=== PATIENT | female | born 1990 | race Hispanic/Latino ===

== ENCOUNTER 2017-05-02 17:50 | Emergency (ER) | payer OTHER, MEDICAID ==
[2017-05-03 01:35] LABS: Mucus,Urine 2+ /HPF; RBC,Urine < 1.0 /HPF (0.0-6.0)
[2017-05-03] MEDS ORDERED: NORCO 7.5/325 PO ONE (01:35)
[2017-05-03] MEDS ORDERED: FLEXERIL PO ONE (01:35)
[2017-05-03 01:42] LABS: Bilirubin,Urine NEG (Negative); Blood,Urine NEG (Negative); Ketones,Urine NEG (Negative); Leukocyte Esterase,Urine NEG (Negative); Nitrite,Urine NEG (Negative); Protein,Urine <15 mg/dL mg/dL (Negative); Urobilinogen,Urine < 2.0 mg/dL (<2.0)
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
[2017-05-03 02:59] VITALS: BP 141/77
== END 2017-05-03 02:40 | disposition home or self-care (01) ==
LOC: ED 17:50
DX: M54.5 Low back pain (principal); M54.6 Pain in thoracic spine; V89.2XXA Person injured in unspecified motor-vehicle accident, traffic, initial encounter; Y93.9 Activity, unspecified; Y92.9 Unspecified place or not applicable; Y99.9 Unspecified external cause status
CPT/HCPCS: 81001; 81025